=== PATIENT | male | born 1965 | race Caucasian/White ===

== ENCOUNTER 2017-02-11 10:40 | Emergency (ER) | payer SELFPAY ==
[2017-02-11] MEDS ORDERED: risperiDONE 0.5 MG TABLET PO ONE (11:08)
[2017-02-11] MEDS ORDERED: FLUoxetine HCL 10 MG CAPSULE PO ONE (11:16)
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
[2017-02-11 11:31] VITALS: BP 130/74
[2017-02-11] MEDS ORDERED: FLUoxetine HCL 10 MG CAPSULE PO SCH (12:00)
== END 2017-02-11 11:28 | disposition home or self-care (01) ==
LOC: ED 10:40
DX: J41.0 Simple chronic bronchitis (principal); Z76.0 Encounter for issue of repeat prescription
CPT/HCPCS: 99283